=== PATIENT | male | born 1975 | race Caucasian/White ===

== ENCOUNTER 2018-12-23 14:03 | Emergency (ER) | payer SELFPAY ==
[~2018-12-23] VITALS: Ht 165.1 cm; Wt 94.3 kg
[2018-12-23 14:10] VITALS: Ht 165.1 cm; Wt 94.3 kg
[2018-12-23 14:57] LABS: BASOPHIL % 0.1 % (0-2); PLATELET COUNT 243 x10^3mcL (130-400); RED CELL DISTRIBUTION WIDTH 12.7 % (11.5-14.5)
[2018-12-23 15:08] LABS: CALCIUM 8.3 mg/dL (8.5-10.1); CARBON DIOXIDE 23.2 mmol/L (21-32); CHLORIDE SERUM 99 mmol/L (98-107); CREATININE SERUM 0.9 mg/dL (0.7-1.3); GFR1 > 60 mL/min; GLUCOSE SERUM 282 mg/dL (74-106); POTASSIUM SERUM 3.5 mmol/L (3.5-5.1); SODIUM SERUM 133 mmol/L (136-145)
[2018-12-23 15:13] LABS: ALBUMIN 3.9 g/dL (3.4-5.0); ALKALINE PHOSPHATASE 101 U/L (46-116); ALT/SGPT 77 U/L (16-63); AST/SGOT 36 U/L (15-37); BILIRUBIN TOTAL 1.09 mg/dL (0.20-1.00); LIPASE 124 IU/L (73-393); TOTAL PROTEIN, SERUM 7.6 g/dL (6.4-8.2)
[2018-12-23 16:18] VITALS: BP 130/89
== END 2018-12-23 16:18 | disposition home or self-care (01) ==
LOC: ED 14:03
PROVIDERS: Emergency Medicine
DX: R10.9 Unspecified abdominal pain (principal); R11.10 Vomiting, unspecified; R19.7 Diarrhea, unspecified; E11.65 Type 2 diabetes mellitus with hyperglycemia; E86.0 Dehydration
CPT/HCPCS: 82962; 87046; 87046-59; J2405